=== PATIENT | male | born 1955 | race Caucasian/White ===

== ENCOUNTER 2016-11-28 15:17 | Emergency (ER) | payer OTHER ==
[~2016-11-28] VITALS: Ht 182.9 cm; Wt 127.0 kg
[2016-11-28 16:08] LABS: Basophils # (auto) 0 uL; Basophils % (auto) 0.1 % (0.0-2.0); CONDITION Y; DEFINITIVE SEE PRINTOUT; Eosinophils # (auto) 0.1 uL; Eosinophils % (auto) 1.7 % (0.0-7.0); Hematocrit 35.5 % (41.0-53.0); Hemoglobin 11.3 g/dL (13.5-17.5); Lymphocytes % (auto) 13.7 % (10.0-50.0); Mean Corpuscular Hemoglobin 24.4 pg (28.0-32.0); Mean Corpuscular Hgb Conc. 31.9 g/dL (32.0-36.0); Mean Corpuscular Volume 76.5 fL (80.0-100.0); Mean Platelet Volume 7.2 fL (7.4-10.4); Monocytes # (auto) 0.3 uL; Monocytes % (auto) 3.8 % (0.0-12.0); Neutrophils # (auto) 5.8 uL; Neutrophils % (auto) 80.7 % (37.0-80.0); Platelet Count (auto) 357 10^3/uL (140-450); Red Cell Distribution Width 17.3 % (11.6-16.0); White Blood Cell 7.2 10^3/uL (4.4-10.8)
[2016-11-28 16:25] LABS: Albumin 3.5 g/dL (3.4-5.0); Anion Gap 12 (5-15); Aspartate Aminotransferase 13 U/L (15-37); BUN/Creatinine Ratio 15.4; Blood Urea Nitrogen 18 mg/dL (7-18); Calcium 9.4 mg/dL (8.5-10.1); Carbon Dioxide 23 mmol/L (21-32); Chloride 102 mmol/L (98-107); GFR African American 82 mL/min; GFR Non-African American 68 mL/min; Glucose 385 mg/dL (74-106); Magnesium 1.9 mg/dL (1.6-2.6); Potassium 4.7 mmol/L (3.5-5.1); Sodium 137 mmol/L (136-145)
[2016-11-28 16:32] LABS: Alkaline Phosphatase 97 U/L (45-117); Bilirubin, Total 0.3 mg/dL (0.2-1.0); Total Protein 8.4 g/dL (6.4-8.2)
[2016-11-28] MEDS ORDERED: MORPHINE SULF INJ 2 MG/ML SYRINGE 1ML IV ONE ×2 (19:30→22:00)
[2016-11-28 20:33] LABS: Urine Bilirubin Negative (Negative); Urine Blood TRACE /uL (Negative); Urine Color Yellow (Yellow); Urine Ketone Negative (Negative); Urine Nitrite Negative (Negative); Urine RBC 7 /hpf (0 - 3); Urine Urobilinogen Normal (Negative); Urine pH 6.5 (5.0-8.0)
[2016-11-28 20:36] LABS: Urine Glucose 4+ mg/dL (Normal)
[2016-11-28 20:49] VITALS: BP 130/76
== END 2016-11-28 22:23 | disposition home or self-care (01) ==
LOC: ER 15:40
DX: S43.401A Unspecified sprain of right shoulder joint, initial encounter (principal); M54.9 Dorsalgia, unspecified; G89.29 Other chronic pain; I11.0 Hypertensive heart disease with heart failure; I50.9 Heart failure, unspecified; J44.9 Chronic obstructive pulmonary disease, unspecified; E11.9 Type 2 diabetes mellitus without complications; E78.5 Hyperlipidemia, unspecified; W18.39XA Other fall on same level, initial encounter; Y93.89 Activity, other specified; Y92.89 Other specified places as the place of occurrence of the external cause; Y99.8 Other external cause status
CPT/HCPCS: 36415; 73030; 80053; 81001; 83735; 84484; 85025; 93005; 96374; 96376; 99285; J2270

== ENCOUNTER 2016-12-02 10:46 | Emergency (ER) | payer OTHER ==
[~2016-12-02] VITALS: Ht 182.9 cm; Wt 127.0 kg
[2016-12-02 11:15] VITALS: BP 132/75
== END 2016-12-02 12:06 | disposition home or self-care (01) ==
LOC: ER 10:46
DX: S43.401A Unspecified sprain of right shoulder joint, initial encounter (principal); G89.4 Chronic pain syndrome; M54.9 Dorsalgia, unspecified; I11.0 Hypertensive heart disease with heart failure; I50.9 Heart failure, unspecified; J44.9 Chronic obstructive pulmonary disease, unspecified; E11.9 Type 2 diabetes mellitus without complications; E78.5 Hyperlipidemia, unspecified; X58.XXXA Exposure to other specified factors, initial encounter; Y93.89 Activity, other specified; Y92.89 Other specified places as the place of occurrence of the external cause; Y99.8 Other external cause status

== ENCOUNTER 2016-12-18 10:45 | Inpatient (IN) | payer OTHER ==
[~2016-12-18] VITALS: Ht 182.9 cm; Wt 128.8 kg
[2016-12-18] MEDS ORDERED: MORPHINE SULF INJ 2 MG/ML SYRINGE 1ML IV ONE (14:15)
[2016-12-18] MEDS ORDERED: ONDANSETRON HCL 4 MG/2 ML VIAL IV ONE (14:15)
[2016-12-18 14:26] LABS: Basophils # (auto) 0.1 uL; Basophils % (auto) 0.5 % (0.0-2.0); CONDITION Y; DEFINITIVE SEE PRINTOUT; Eosinophils # (auto) 0.1 uL; Eosinophils % (auto) 0.6 % (0.0-7.0); Hematocrit 35.8 % (41.0-53.0); Hemoglobin 11.4 g/dL (13.5-17.5); Lymphocytes # (auto) 1.1 uL; Lymphocytes % (auto) 11.4 % (10.0-50.0); Mean Corpuscular Hemoglobin 23.9 pg (28.0-32.0); Mean Corpuscular Volume 74.6 fL (80.0-100.0); Mean Platelet Volume 7.3 fL (7.4-10.4); Monocytes # (auto) 0.5 uL; Monocytes % (auto) 5.2 % (0.0-12.0); Neutrophils # (auto) 8.2 uL; Neutrophils % (auto) 82.3 % (37.0-80.0); Platelet Count (auto) 361 10^3/uL (140-450); Red Cell Distribution Width 17.7 % (11.6-16.0)
[2016-12-18 14:37] LABS: Albumin 3.3 g/dL (3.4-5.0); BUN/Creatinine Ratio 20.4; Potassium 4.1 mmol/L (3.5-5.1)
[2016-12-18 14:39] LABS: INR 0.98 (0.9-1.15); Partial Thromboplastin Time 35.2 sec (22.64-33.71); Prothrombin Time 10.7 sec (9.37-12.3)
[2016-12-18 14:40] LABS: Bilirubin, Total 0.2 mg/dL (0.2-1.0); Total Protein 8.1 g/dL (6.4-8.2)
[2016-12-18 14:46] LABS: B-Type Natriuretic Peptide 8.73 pg/mL (0-100)
[2016-12-18 14:49] LABS: Temperature: 22.7 C (20.0-25.0)
[2016-12-18 15:00] LABS: Lactic Acid w/Reflex 2.4 mmol/L (0.4-2.0)
[2016-12-18 15:01] LABS: REFLEX LACTIC ACID YES OR NO YES
[2016-12-18 16:02] LABS: Urine Bilirubin Negative (Negative); Urine Blood 2+ /uL (Negative); Urine Color Yellow (Yellow); Urine Glucose 4+ mg/dL (Normal); Urine Ketone Negative (Negative); Urine Mucus FEW (None Seen); Urine Nitrite Negative (Negative); Urine RBC 10 /hpf (0 - 3); Urine Urobilinogen Normal (Negative); Urine pH 5.5 (5.0-8.0)
[2016-12-18] MEDS ORDERED: cefTRIAXone 1GM/50ML D5W 50 ML IV ONE (16:30)
[2016-12-18] MEDS ORDERED: HYDROmorphone HCL 2 MG/ML VL IV ONE (18:15)
[2016-12-18] MEDS ORDERED: DOCUSATE SOD 100 MG CAP PO PRN (18:30)
[2016-12-18] MEDS ORDERED: ONDANSETRON HCL 4 MG/2 ML VIAL IV PRN (18:30)
[2016-12-18] MEDS ORDERED: TEMAZEPAM 15 MG CAP PO PRN (18:30)
[2016-12-18] MEDS ORDERED: DEXTROSE (50%) 50ML SYRG IV PRN (18:30)
[2016-12-18] MEDS ORDERED: ACETAMINOPHEN 325 MG TAB PO PRN (18:30)
[2016-12-18] MEDS ORDERED: HYDR12.56 PO (18:40)
[2016-12-18] MEDS ORDERED: ALPR1TAB2 PO (18:40)
[2016-12-18] MEDS ORDERED: OXY5T PO (18:40)
[2016-12-18] MEDS ORDERED: ZOLP10TA PO (18:40)
[2016-12-18] MEDS ORDERED: METF-370 PO (18:40)
[2016-12-18] MEDS ORDERED: RIVA20TA PO (18:40)
[2016-12-18] MEDS ORDERED: OXY20CRT PO (18:40)
[2016-12-18] MEDS ORDERED: INSU70IN3 SC (18:40)
[2016-12-18] MEDS: CLINDAMYCIN 300MG IV 50 ML IV SCH (20:53)
[2016-12-18 21:30] VITALS: BP 122/71
[2016-12-18] MEDS: ASCORBIC ACID 500 MG TAB PO SCH (21:54)
[2016-12-18] MEDS: oxyCODONE ER 10 MG TAB PO SCH (21:54)
[2016-12-18] MEDS: SODIUM CHLOR 0.9% PF (SALINE LOCK) 10ML VIAL IV SCH (21:55)
[2016-12-18] MEDS: ACCU-CHEK COMFORT CURVE STRIP VI SCH (21:55)
[2016-12-18] MEDS: FAMOTIDINE 20 MG TAB PO SCH (21:55)
[2016-12-18] MEDS ORDERED: InsuLIN REG 1unit/0.01ml Soln (100units/ml) SC SCH (22:00)
[2016-12-18] MEDS: HYDROmorphone HCL 2 MG/ML VL IV PRN (22:48)
[2016-12-19 03:00] VITALS: BP 138/83
[2016-12-19] MEDS: HYDROmorphone HCL 2 MG/ML VL IV PRN ×2 (03:23→08:23)
[2016-12-19] MEDS: CLINDAMYCIN 300MG IV 50 ML IV SCH ×2 (04:02→12:00)
[2016-12-19 04:39] VITALS: BP 112/70
[2016-12-19 05:54] LABS: Basophils # (auto) 0.1 uL; Basophils % (auto) 0.7 % (0.0-2.0); CONDITION Y; DEFINITIVE SEE PRINTOUT; Eosinophils # (auto) 0.2 uL; Eosinophils % (auto) 2.5 % (0.0-7.0); Hematocrit 34.9 % (41.0-53.0); Lymphocytes # (auto) 1.9 uL; Lymphocytes % (auto) 24.6 % (10.0-50.0); Mean Corpuscular Hemoglobin 23.8 pg (28.0-32.0); Mean Corpuscular Hgb Conc. 31.4 g/dL (32.0-36.0); Mean Corpuscular Volume 75.6 fL (80.0-100.0); Mean Platelet Volume 7.2 fL (7.4-10.4); Monocytes # (auto) 0.6 uL; Monocytes % (auto) 7.7 % (0.0-12.0); Neutrophils # (auto) 4.9 uL; Neutrophils % (auto) 64.5 % (37.0-80.0); Platelet Count (auto) 318 10^3/uL (140-450); Red Cell Distribution Width 17.5 % (11.6-16.0); White Blood Cell 7.5 10^3/uL (4.4-10.8)
[2016-12-19] MEDS: SODIUM CHLOR 0.9% PF (SALINE LOCK) 10ML VIAL IV SCH ×2 (06:04→14:00)
[2016-12-19 06:11] LABS: Albumin 2.9 g/dL (3.4-5.0); Calcium 8.7 mg/dL (8.5-10.1)
[2016-12-19 06:13] LABS: BUN/Creatinine Ratio 18.8
[2016-12-19 06:17] LABS: Bilirubin, Total 0.4 mg/dL (0.2-1.0); Total Protein 7.1 g/dL (6.4-8.2)
[2016-12-19] MEDS: InsuLIN REG 1unit/0.01ml Soln (100units/ml) SC SCH ×2 (07:01→11:30)
[2016-12-19] MEDS: ACCU-CHEK COMFORT CURVE STRIP VI SCH ×2 (07:01→11:39)
[2016-12-19] MEDS: ALBUTEROL SULF 2.5 MG/0.5ML(0.5%) NEB SOLN NEB SCH ×3 (07:01→12:10)
[2016-12-19] MEDS ORDERED: INSULIN 70/30 1unit/0.01ml Susp (100units/ml) SC SCH (08:00)
[2016-12-19] MEDS: Boost Glucose Control 8 Ounces PO SCH ×2 (08:22→12:25)
[2016-12-19 08:44] VITALS: BP 112/56
[2016-12-19] MEDS ORDERED: cefTRIAXone 1GM/50ML D5W 50 ML IV SCH (09:00)
[2016-12-19] MEDS ORDERED: ENOXAPARIN SOD 40 MG/0.4 ML SYRINGE SC SCH (10:00)
[2016-12-19] MEDS ORDERED: TRIAMTERENE/HCTZ 37.5/25 MG CAP PO SCH (10:00)
[2016-12-19] MEDS ORDERED: ZINC SULFATE 220 MG CAP PO SCH (10:00)
[2016-12-19] MEDS ORDERED: MULTIPLE VITAMIN TAB PO SCH (10:00)
[2016-12-19] MEDS: FAMOTIDINE 20 MG TAB PO SCH (11:39)
[2016-12-19] MEDS: ASCORBIC ACID 500 MG TAB PO SCH (11:39)
[2016-12-19] MEDS: oxyCODONE ER 10 MG TAB PO SCH (11:39)
[2016-12-19 11:54] VITALS: BP 127/69
[2016-12-19 13:43] VITALS: BP 112/56
[2016-12-19] MEDS ORDERED: PRO-STAT 64 30ML PO SCH (18:00)
== END 2016-12-19 14:48 | disposition home or self-care (01) | DRG 603 ==
LOC: ER 10:45 → OVERFLOW 10:46 → CENTRAL 20:30
PROVIDERS: ADMIT Internal Medicine; ATTEND Internal Medicine Geriatric Medicine
DX: L03.115 Cellulitis of right lower limb (principal); I11.0 Hypertensive heart disease with heart failure; I50.9 Heart failure, unspecified; F32.9 Major depressive disorder, single episode, unspecified; E11.9 Type 2 diabetes mellitus without complications; E66.9 Obesity, unspecified; E78.5 Hyperlipidemia, unspecified; S81.801A Unspecified open wound, right lower leg, initial encounter; X58.XXXA Exposure to other specified factors, initial encounter; F41.9 Anxiety disorder, unspecified; G89.29 Other chronic pain; J44.9 Chronic obstructive pulmonary disease, unspecified; Z79.4 Long term (current) use of insulin; Z86.711 Personal history of pulmonary embolism; Z86.718 Personal history of other venous thrombosis and embolism; Z86.73 Personal history of transient ischemic attack (TIA), and cerebral infarction without residual deficits; Y93.89 Activity, other specified; Y92.89 Other specified places as the place of occurrence of the external cause; Z68.38 Body mass index [BMI] 38.0-38.9, adult
CPT/HCPCS: 36415; 71010; 80053; 81001; 82962; 83036; 83540; 83605; 83735; 83880; 84443; 84484; 85025; 85610; 85730; 87040; 93005; 93306; 93970; 94640; 94761; 96365; 96375; 97163; J0696; J1815; J2405; J3490

== ENCOUNTER 2017-05-03 07:19 | Emergency (ER) | payer OTHER ==
[~2017-05-03] VITALS: Ht 182.9 cm; Wt 133.4 kg
[~2017-05-03 07:19] MED LIST: ALBU2TAB4 PO; ALPR1TAB2 PO; DONE5TAB31 PO; GABA300C PO; HYDR12.56 PO; INSU70IN3 SC; METF-370 PO; OXY10CRT PO; RIVA20TA PO; ZOLP10TA PO
[2017-05-03] MEDS ORDERED: KETOROLAC TROMETH 60MG/2ML VIAL IM ONE (10:00)
[2017-05-03 10:19] VITALS: BP 125/81
== END 2017-05-03 11:42 | disposition home or self-care (01) ==
LOC: ER 07:19 → EDUNIT# 07:19 → ER 11:42
DX: G89.29 Other chronic pain (principal); M54.2 Cervicalgia; G89.4 Chronic pain syndrome; J44.9 Chronic obstructive pulmonary disease, unspecified; I10 Essential (primary) hypertension; E11.21 Type 2 diabetes mellitus with diabetic nephropathy
CPT/HCPCS: 72040; 96372; 99284; J1885

== ENCOUNTER 2017-06-24 06:15 | Emergency (ER) | payer OTHER ==
[~2017-06-24] VITALS: Ht 182.9 cm; Wt 131.1 kg
[2017-06-24 06:25] VITALS: BP 146/95
[2017-06-24] MEDS ORDERED: diphenhdrAMINE HCL 50 MG/1 ML VL IM ONE (06:45)
[2017-06-24] MEDS ORDERED: KETOROLAC TROMETH 60MG/2ML VIAL IM ONE (06:45)
== END 2017-06-24 07:06 | disposition home or self-care (01) ==
LOC: ER 06:15
DX: G89.29 Other chronic pain (principal); M54.5 Low back pain; J44.9 Chronic obstructive pulmonary disease, unspecified; I10 Essential (primary) hypertension; F41.9 Anxiety disorder, unspecified; E11.9 Type 2 diabetes mellitus without complications; Z76.0 Encounter for issue of repeat prescription
CPT/HCPCS: 96372; 99284; J1200; J1885

== ENCOUNTER 2017-06-25 17:59 | Emergency (ER) | payer OTHER ==
[~2017-06-25] VITALS: Ht 177.8 cm; Wt 54.4 kg
[2017-06-25 18:45] LABS: Basophils # (auto) 0.1 uL; Eosinophils # (auto) 0.3 uL; Eosinophils % (auto) 5.9 % (0.0-7.0); Hematocrit 38.6 % (41.0-53.0); Hemoglobin 12.9 g/dL (13.5-17.5); Lymphocytes # (auto) 1.5 uL; Mean Corpuscular Hemoglobin 28.2 pg (28.0-32.0); Mean Corpuscular Hgb Conc. 33.4 g/dL (32.0-36.0); Mean Corpuscular Volume 84.4 fL (80.0-100.0); Monocytes # (auto) 0.4 uL; Monocytes % (auto) 6.8 % (0.0-12.0); Neutrophils # (auto) 3.6 uL; Neutrophils % (auto) 61.3 % (37.0-80.0); Nucleated Red Blood Cells % 0.1 %; Platelet Count (auto) 199 10^3/uL (140-450); Red Blood Cells 4.58 10^6/uL (4.5-5.90); White Blood Cell 5.9 10^3/uL (4.4-10.8)
[2017-06-25 19:04] LABS: Albumin 3.5 g/dL (3.4-5.0); BUN/Creatinine Ratio 22.9; Bilirubin, Total 0.3 mg/dL (0.2-1.0); Calcium 9.5 mg/dL (8.5-10.1); Potassium 4.5 mmol/L (3.5-5.1); Total Protein 7.9 g/dL (6.4-8.2)
[2017-06-25] MEDS ORDERED: SODIUM CHLORIDE 0.9% 1,000 ML IVB ONE (19:56)
[2017-06-25] MEDS ORDERED: InsuLIN REG 1unit/0.01ml Soln (100units/ml) IV ONE (20:00)
[2017-06-25] MEDS: OXYCODONE HCL 5MG TAB PO PRN (20:42)
[2017-06-26] MEDS ORDERED: OXYCODONE HCL 5MG TAB PO PRN (00:15)
[2017-06-26 00:20] LABS: Urine Bacteria FEW /hpf (None Seen); Urine Blood TRACE /uL (Negative); Urine Mucus FEW (None Seen); Urine Specific Gravity 1.027 (1.001-1.035); Urine WBC 1 /hpf (0 - 3)
[2017-06-26] MEDS: OXYCODONE HCL 5MG TAB PO PRN (00:52)
[2017-06-26 01:50] VITALS: BP 142/76
== END 2017-06-26 02:40 | disposition home or self-care (01) ==
LOC: EDBD 17:59 → ER 17:59
DX: E11.65 Type 2 diabetes mellitus with hyperglycemia (principal); G89.4 Chronic pain syndrome; J44.9 Chronic obstructive pulmonary disease, unspecified; I10 Essential (primary) hypertension; Z79.4 Long term (current) use of insulin; Z86.73 Personal history of transient ischemic attack (TIA), and cerebral infarction without residual deficits
CPT/HCPCS: 36415; 71045; 80053; 81001; 82962; 85025; 93005; 96361; 96374; 99285; J1815; J7030

== ENCOUNTER 2017-06-27 06:47 | Emergency (ER) | payer OTHER ==
[~2017-06-27] VITALS: Ht 182.9 cm; Wt 133.8 kg
[2017-06-27 07:35] VITALS: BP 109/73
[2017-06-27] MEDS ORDERED: oxyCODONE ER 20 MG TAB PO ONE (09:00)
== END 2017-06-27 09:05 | disposition home or self-care (01) ==
LOC: ER 06:47
DX: G89.4 Chronic pain syndrome (principal); M79.1 Myalgia; M54.2 Cervicalgia; J44.9 Chronic obstructive pulmonary disease, unspecified; I10 Essential (primary) hypertension; E11.65 Type 2 diabetes mellitus with hyperglycemia; Z90.49 Acquired absence of other specified parts of digestive tract; Z76.0 Encounter for issue of repeat prescription; Z86.73 Personal history of transient ischemic attack (TIA), and cerebral infarction without residual deficits

== ENCOUNTER 2017-07-06 06:30 | Emergency (ER) | payer OTHER ==
[~2017-07-06] VITALS: Ht 182.9 cm; Wt 133.8 kg
[2017-07-06 06:54] VITALS: BP 146/86
[2017-07-06] MEDS ORDERED: MORPHINE SULF 30 mg ER tab PO ONE (07:45)
== END 2017-07-06 08:10 | disposition home or self-care (01) ==
LOC: ER 06:30
DX: M54.5 Low back pain (principal); M79.1 Myalgia; G89.29 Other chronic pain; E11.9 Type 2 diabetes mellitus without complications; J44.9 Chronic obstructive pulmonary disease, unspecified; F41.9 Anxiety disorder, unspecified; I10 Essential (primary) hypertension; Z86.73 Personal history of transient ischemic attack (TIA), and cerebral infarction without residual deficits; Z90.49 Acquired absence of other specified parts of digestive tract

== ENCOUNTER 2017-07-09 13:57 | Observation (INO) | payer OTHER ==
[~2017-07-09] VITALS: Ht 182.9 cm; Wt 129.3 kg
[2017-07-09 15:57] LABS: Basophils # (auto) 0.1 uL; Eosinophils # (auto) 0.3 uL; Eosinophils % (auto) 4.8 % (0.0-7.0); Hematocrit 37.7 % (41.0-53.0); Hemoglobin 12.2 g/dL (13.5-17.5); Lymphocytes # (auto) 1.5 uL; Lymphocytes % (auto) 21.1 % (10.0-50.0); Mean Corpuscular Hgb Conc. 32.5 g/dL (32.0-36.0); Mean Corpuscular Volume 86.1 fL (80.0-100.0); Monocytes # (auto) 0.5 uL; Monocytes % (auto) 6.3 % (0.0-12.0); Neutrophils # (auto) 4.8 uL; Neutrophils % (auto) 65.8 % (37.0-80.0); Nucleated Red Blood Cells % 0.1 %; Platelet Count (auto) 236 10^3/uL (140-450); Red Blood Cells 4.37 10^6/uL (4.5-5.90); Red Cell Distribution Width 15.4 % (11.8-14.3); White Blood Cell 7.3 10^3/uL (4.4-10.8)
[2017-07-09 16:24] LABS: Alanine Aminotransferase 20 U/L (16-61); Albumin 3.2 g/dL (3.4-5.0); Alkaline Phosphatase 75 U/L (45-117); Anion Gap 10 (5-15); Aspartate Aminotransferase 16 U/L (15-37); BUN/Creatinine Ratio 16.7; Bilirubin, Total 0.2 mg/dL (0.2-1.0); Blood Urea Nitrogen 19 mg/dL (7-18); Calcium 8.9 mg/dL (8.5-10.1); Carbon Dioxide 23 mmol/L (21-32); Chloride 102 mmol/L (98-107); GFR African American 84 mL/min; GFR Non-African American 70 mL/min; Magnesium 2.2 mg/dL (1.6-2.6); Potassium 4.5 mmol/L (3.5-5.1); Sodium 135 mmol/L (136-145); Total Protein 7.5 g/dL (6.4-8.2)
[2017-07-09 16:28] LABS: Glucose 465 mg/dL (74-106)
[2017-07-09] MEDS ORDERED: HYDROcodone-ACET 10/325MG TAB PO ONE ×2 (16:45→19:00)
[2017-07-09 16:54] LABS: INR 0.93 (0.9-1.15); Prothrombin Time 10.1 sec (9.37-12.3)
[2017-07-09] MEDS ORDERED: InsuLIN REG 1unit/0.01ml Soln (100units/ml) SC ONE (17:15)
[2017-07-09] MEDS ORDERED: InsuLIN REG 1unit/0.01ml Soln (100units/ml) ONE (17:17)
[2017-07-09 18:46] VITALS: BP 161/80
[2017-07-09] MEDS ORDERED: KETOROLAC TROMETH 60MG/2ML VIAL IM ONE (20:00)
[2017-07-09] MEDS ORDERED: InsuLIN REG 1unit/0.01ml Soln (100units/ml) IV ONE (20:00)
== END 2017-07-09 20:13 | disposition left against medical advice (07) | DRG 639 ==
LOC: ER 13:59 → OVERFLOW 15:00 → ER 20:13
PROVIDERS: ADMIT Family Medicine; ATTEND Family Medicine
DX: E10.65 Type 1 diabetes mellitus with hyperglycemia (principal); E78.5 Hyperlipidemia, unspecified; F41.9 Anxiety disorder, unspecified; I10 Essential (primary) hypertension; K21.9 Gastro-esophageal reflux disease without esophagitis
CPT/HCPCS: 36415; 80053; 82962; 83735; 83880; 84443; 84484; 85025; 85610; 85730; 93005; 96372; 96374; 99285; G0378; J1815; J1885

== ENCOUNTER 2017-07-12 15:17 | Emergency (ER) | payer OTHER ==
[~2017-07-12] VITALS: Ht 182.9 cm; Wt 133.8 kg
[2017-07-12 15:29] VITALS: BP 133/88
== END 2017-07-12 15:56 | disposition home or self-care (01) ==
LOC: MERGE 15:19 → ER 15:19
DX: M79.1 Myalgia (principal); J44.9 Chronic obstructive pulmonary disease, unspecified; I10 Essential (primary) hypertension; E11.9 Type 2 diabetes mellitus without complications

== ENCOUNTER 2017-07-24 03:43 | Emergency (ER) | payer OTHER ==
[~2017-07-24] VITALS: Ht 188 cm; Wt 131.5 kg
[2017-07-24 07:48] LABS: Basophils # (auto) 0 uL; Eosinophils # (auto) 0.1 uL; Hemoglobin 13.5 g/dL (13.5-17.5); Mean Corpuscular Hemoglobin 26.9 pg (28.0-32.0); Neutrophils # (auto) 6.7 uL; Red Blood Cells 5.02 10^6/uL (4.5-5.90)
[2017-07-24 07:49] LABS: Basophils % (auto) 0.4 % (0.0-2.0); Eosinophils % (auto) 1.3 % (0.0-7.0); Lymphocytes % (auto) 21.4 % (10.0-50.0); Mean Corpuscular Hgb Conc. 32.2 g/dL (32.0-36.0); Mean Corpuscular Volume 83.6 fL (80.0-100.0); Monocytes # (auto) 0.7 uL; Neutrophils % (auto) 69.9 % (37.0-80.0); Nucleated Red Blood Cells % 0.1 %; Platelet Count (auto) 272 10^3/uL (140-450); Red Cell Distribution Width 15.7 % (11.8-14.3); White Blood Cell 9.5 10^3/uL (4.4-10.8)
[2017-07-24 08:28] LABS: Albumin 3.4 g/dL (3.4-5.0); BUN/Creatinine Ratio 20.7; Bilirubin, Total 0.3 mg/dL (0.2-1.0); Calcium 9.2 mg/dL (8.5-10.1); Potassium 4.2 mmol/L (3.5-5.1); Total Protein 7.8 g/dL (6.4-8.2)
[2017-07-24 10:17] VITALS: BP 138/84
[2017-07-24] MEDS ORDERED: cefTRIAXone SOD 1,000 MG VL IM ONE (10:30)
[2017-07-24] MEDS ORDERED: KETOROLAC TROMETH 60MG/2ML VIAL IM ONE (10:45)
== END 2017-07-24 11:27 | disposition home or self-care (01) ==
LOC: EDBD 03:43 → ER 03:49 → MERGE 03:49 → ER 11:27
DX: J18.9 Pneumonia, unspecified organism (principal); I10 Essential (primary) hypertension; E11.9 Type 2 diabetes mellitus without complications; F41.9 Anxiety disorder, unspecified; J44.0 Chronic obstructive pulmonary disease with (acute) lower respiratory infection
CPT/HCPCS: 36415; 71101; 80053; 85025; 96372; 99285; J0696; J1885

== ENCOUNTER 2017-10-01 01:19 | Emergency (ER) | payer OTHER ==
[~2017-10-01] VITALS: Ht 182.9 cm; Wt 131.5 kg
[2017-10-01] MEDS ORDERED: KETOROLAC TROMETH 30 MG/ML 1ML VIAL IV ONE (02:00)
[2017-10-01] MEDS ORDERED: GABAPENTIN 100 MG CAP PO ONE (02:30)
[2017-10-01 02:39] LABS: Basophils # (auto) 0.1 uL; Eosinophils # (auto) 0.3 uL; Hemoglobin 12.4 g/dL (13.5-17.5); Lymphocytes # (auto) 1.5 uL; Monocytes # (auto) 0.5 uL; Nucleated Red Blood Cells % 0.1 %
[2017-10-01 02:41] LABS: Basophils % (auto) 0.9 % (0.0-2.0); Eosinophils % (auto) 5.1 % (0.0-7.0); Hematocrit 39.2 % (41.0-53.0); Mean Corpuscular Hemoglobin 25.2 pg (28.0-32.0); Mean Corpuscular Hgb Conc. 31.7 g/dL (32.0-36.0); Mean Corpuscular Volume 79.5 fL (80.0-100.0); Monocytes % (auto) 8.1 % (0.0-12.0); Neutrophils % (auto) 62.9 % (37.0-80.0); Platelet Count (auto) 207 10^3/uL (140-450); Red Blood Cells 4.93 10^6/uL (4.5-5.90); Red Cell Distribution Width 18.4 % (11.8-14.3); White Blood Cell 6.3 10^3/uL (4.4-10.8)
[2017-10-01 03:20] LABS: Albumin 3.2 g/dL (3.4-5.0); BUN/Creatinine Ratio 16.9; Calcium 9.5 mg/dL (8.5-10.1)
[2017-10-01 03:21] LABS: Bilirubin, Total 0.3 mg/dL (0.2-1.0); Total Protein 7.5 g/dL (6.4-8.2)
[2017-10-01] MEDS ORDERED: GABAPENTIN 300 MG CAP ONE (04:58)
[2017-10-01 06:29] VITALS: BP 137/86
== END 2017-10-01 06:16 | disposition home or self-care (01) ==
LOC: EDBD 01:19 → ER 01:19
DX: G89.4 Chronic pain syndrome (principal); M25.561 Pain in right knee; M25.562 Pain in left knee; E66.01 Morbid (severe) obesity due to excess calories; R53.1 Weakness; E11.9 Type 2 diabetes mellitus without complications; F41.9 Anxiety disorder, unspecified; I10 Essential (primary) hypertension; K21.9 Gastro-esophageal reflux disease without esophagitis; Z79.4 Long term (current) use of insulin; Z86.73 Personal history of transient ischemic attack (TIA), and cerebral infarction without residual deficits
CPT/HCPCS: 36415; 80053; 84484; 85025; 93005; 96374; 99285; J1885